=== PATIENT | female | born 1960 ===

== ENCOUNTER → 2017-11-11 | Outpatient (CLI) | payer OTHER ==
--- NOTE | 2017-11-11 14:56 | RADRPT ---
EXAM DATE/TIME: 11/11/2017 14:35 [facility] COMPARISON: No previous studies available for comparison. INDICATIONS : Left hand pain x years no known injury. MEDICAL HISTORY : None. SURGICAL HISTORY : None. ENCOUNTER: Initial ACUITY: 1 day PAIN SCORE: 5/10 LOCATION: Left Hand. FINDINGS: Three view examination of the left hand demonstrates no soft tissue swelling, dislocation, or fractur e. The carpal bones appear intact. The interphalangeal and metacarpophalangeal joints are intact. Bony mineralization is normal. CONCLUSION: Unremarkable examination of the left hand. Shukri Pruitt MD on November 11, 2017 at 14:53 Board Certified Radiologist. This report was verified electronically.
--- NOTE | 2017-11-11 14:57 | RADRPT ---
EXAM DATE/TIME: 11/11/2017 14:38 [facility] COMPARISON: HAND LEFT COMPLETE ([id number]), November 11, 2017, 14:35. INDICATIONS : Right hand pain x years no known injury. MEDICAL HISTORY : None. SURGICAL HISTORY : None. ENCOUNTER: Initial ACUITY: 1 day PAIN SCORE: 5/10 LOCATION: Right Hand. FINDINGS: Three view examination of the right hand demonstrates no soft tissue swelling, dislocation, or fractu re. The carpal bones appear intact. The interphalangeal and metacarpophalangeal joints are intact. Bony mineralization is normal. CONCLUSION: Unremarkable examination of the right hand. Shukri Pruitt MD on November 11, 2017 at 14:54 Board Certified Radiologist. This report was verified electronically.
== END ==
LOC: HRAD 14:15
PROVIDERS: ATTEND Family Medicine
DX: M25.541 Pain in joints of right hand (principal); M25.542 Pain in joints of left hand
CPT/HCPCS: 73130